=== PATIENT | female | born 1955 | race Two or more races ===

== ENCOUNTER 2018-10-29 05:30 | Day surgery (SDC) | payer OTHER | END 2018-10-29 10:00 | disposition home or self-care (01) | LOC: AMB-ENDOS 05:30 | DX: C18.2 Malignant neoplasm of ascending colon (principal) ==

== ENCOUNTER 2018-12-25 14:23 | Inpatient (IN) | payer OTHER ==
[~2018-12-25] VITALS: Ht 157.5 cm; Wt 51.7 kg
[2019-01-09] MEDS ORDERED: PRILOSEC OTC20 MG PO (10:50)
[2019-01-23] MEDS ORDERED: LEVSIN/SL0.125 MG SL (08:58)
[2019-01-23] MEDS ORDERED: PRILOSEC OTC20 MG PO (08:58)
[2019-01-23] MEDS ORDERED: INTESTINEX680 M1 PO (08:58)
== END 2019-01-23 12:37 | disposition home or self-care (01) | DRG 329 ==
LOC: O/R 01-15 06:30 → SURH 01-15 06:30 → SURG 01-15 07:00 → SURH 01-15 17:20 → SURG 01-17 18:29
PROVIDERS: Urology; ADMIT Surgery
PROC: 0JQC0ZZ Repair Pelvic Region Subcutaneous Tissue and Fascia, Open Approach (ICD-10-PCS; 2019-01-15)
PROC: 0DJD8ZZ Inspection of Lower Intestinal Tract, Via Natural or Artificial Opening Endoscopic (ICD-10-PCS; 2019-01-15)
PROC: 0DTF0ZZ Resection of Right Large Intestine, Open Approach (ICD-10-PCS; principal; 2019-01-15 07:00)
PROC: 07TB0ZZ Resection of Mesenteric Lymphatic, Open Approach (ICD-10-PCS; 2019-01-15 07:00)
PROC: 3E0F7GC Introduction of Other Therapeutic Substance into Respiratory Tract, Via Natural or Artificial Opening (ICD-10-PCS; 2019-01-17)
PROC: 0DH67UZ Insertion of Feeding Device into Stomach, Via Natural or Artificial Opening (ICD-10-PCS; 2019-01-19)
PROC: 3E0G76Z Introduction of Nutritional Substance into Upper GI, Via Natural or Artificial Opening (ICD-10-PCS; 2019-01-19)
PROC: 30233N1 Transfusion of Nonautologous Red Blood Cells into Peripheral Vein, Percutaneous Approach (ICD-10-PCS; 2019-01-20)
PROC: 02HV33Z Insertion of Infusion Device into Superior Vena Cava, Percutaneous Approach (ICD-10-PCS; 2019-01-20)
PROC: 3E0336Z Introduction of Nutritional Substance into Peripheral Vein, Percutaneous Approach (ICD-10-PCS; 2019-01-20)
DX: C18.2 Malignant neoplasm of ascending colon (principal); J80 Acute respiratory distress syndrome; C77.2 Secondary and unspecified malignant neoplasm of intra-abdominal lymph nodes; D62 Acute posthemorrhagic anemia; K91.31 Postprocedural partial intestinal obstruction; E44.0 Moderate protein-calorie malnutrition; J95.89 Other postprocedural complications and disorders of respiratory system, not elsewhere classified; Z93.2 Ileostomy status

== ENCOUNTER 2018-12-27 13:53 | Outpatient (CLI) | payer OTHER | END 2018-12-27 14:04 | disposition home or self-care (01) | LOC: RAD 13:53 | DX: N20.1 Calculus of ureter (principal); C18.8 Malignant neoplasm of overlapping sites of colon; C80.0 Disseminated malignant neoplasm, unspecified; Z93.2 Ileostomy status; R59.0 Localized enlarged lymph nodes; K56.50 Intestinal adhesions [bands], unspecified as to partial versus complete obstruction ==

== ENCOUNTER 2019-01-14 09:04 | Outpatient (CLI) | payer OTHER ==
[~2019-01-14 09:04] MED LIST: PRILOSEC OTC20 MG PO
== END 2019-01-14 09:15 | disposition home or self-care (01) ==
LOC: LAB 09:04
DX: E78.2 Mixed hyperlipidemia (principal)

== ENCOUNTER 2019-05-30 22:33 | Inpatient (IN) | payer OTHER ==
[~2019-05-30] VITALS: Ht 160 cm; Wt 45.4 kg
[~2019-05-30 22:33] MED LIST changes: +INTESTINEX680 M1 PO; +LEVSIN/SL0.125 MG SL
[2019-05-30] MEDS ORDERED: PEPCID AC20 MG PO (22:43)
[2019-05-30] MEDS ORDERED: DICYCLOMINE HCL20 MG PO (22:44)
[2019-05-30] MEDS ORDERED: ULTRAM50 MG (22:44)
[2019-05-30] MEDS ORDERED: PANTOPRAZOLE SO40 MG PO (22:44)
[2019-05-30] MEDS ORDERED: OMEPRAZOLE20 MG PO (22:45)
[2019-06-13] MEDS ORDERED: CARAFATE1 GM/10 ML PO (12:29)
[2019-06-13] MEDS ORDERED: PRILOSEC OTC20 MG PO (12:29)
[2019-06-13] MEDS ORDERED: INTESTINEX680 M1 PO (12:29)
[2019-06-13] MEDS ORDERED: LEVSIN/SL0.125 MG SL (12:29)
[2019-06-13] MEDS ORDERED: SIMETHICONE80 MG PO (12:29)
[2019-06-13] MEDS ORDERED: ULTRAM50 MG PO (12:34)
[2019-06-13] MEDS ORDERED: LIDODERM1 EACH TOP (12:34)
[2019-06-13] MEDS ORDERED: ZOFRAN8 MG PO (12:35)
== END 2019-06-13 16:16 | disposition home or self-care (01) | DRG 392 ==
LOC: ER 22:33 → SURH 05-31 09:15
PROVIDERS: ADMIT Surgery
PROC: 0W9G3ZX Drainage of Peritoneal Cavity, Percutaneous Approach, Diagnostic (ICD-10-PCS; principal; 2019-05-31)
PROC: BW40ZZZ Ultrasonography of Abdomen (ICD-10-PCS; 2019-05-31)
PROC: 0DH67UZ Insertion of Feeding Device into Stomach, Via Natural or Artificial Opening (ICD-10-PCS; 2019-06-01)
PROC: 02HV33Z Insertion of Infusion Device into Superior Vena Cava, Percutaneous Approach (ICD-10-PCS; 2019-06-01)
PROC: 0DBN8ZX Excision of Sigmoid Colon, Via Natural or Artificial Opening Endoscopic, Diagnostic (ICD-10-PCS; 2019-06-07)
DX: K52.9 Noninfective gastroenteritis and colitis, unspecified (principal); R18.8 Other ascites; E46 Unspecified protein-calorie malnutrition; N18.2 Chronic kidney disease, stage 2 (mild); D64.9 Anemia, unspecified; R80.9 Proteinuria, unspecified; Z85.038 Personal history of other malignant neoplasm of large intestine